=== PATIENT | male | born 1960 | race Caucasian/White ===

== ENCOUNTER 2020-06-19 06:41 | Observation (INO) ==
--- NOTE | 2020-06-13 10:07 | Anesthesiology Consultation ---
Date of Service June 13, 2020 Assessment & Plan (1) Encounter for pre-operative examination: COVID Status: As of 06/13 assessment, patient denies travel to endemic area, known exposure/sick contacts, or symptoms of COVID19. Patient instructed that they and their household members must follow strict social distancing guidelines, wear a mask in public and avoid travel for 14 days prior to surgery. Preoperative COVID19 testing completed at [facility] 06/13 -- results NEGATIVE. Patient made aware to self-isolate as much as possible between COVID testing and surgery. PATIENT GOES BY '[facility]AU' Chart Review Chart Review: Acceptable Risk for Surgery and Patient seen in Pre Admission Testing Teaching & Discussion Instructed NPO after midnight before surgery, except medications with 15 cc of water. Medication instructions provided according to the [facility] guidelines. History Surgery Operation Date: 06/19/20 08:15 Proposed Procedures p Right Robotic Partial Nephrectomy - Christiano Pagan, DO Height/Weight Height: 6 ft 1.5 in Weight: 183.4 kg Allergies Allergy/AdvReac Type Severity Reaction Status Date / Time No Known Allergies Allergy Verified 06/10/20 10:11 Medications Home Medications Medication Instructions Recorded Confirmed Last Taken No Known Home Medications 06/10/20 06/10/20 Unknown Past Medical History Medical History Basal cell carcinoma face Hypertension no current problems and no meds Morbid obesity Renal mass Suspicious for malignancy per imaging Sleep apnea cpap. Pt reports 100% compliance. Exercise / Class Metabolic Activity II 4-5 Yardwork/Stairs/Walk up hill ([place], goes up and down stairs, denies CP or SOB with 1 FOS) Past Family History Family History Sister Lymphoma Mother Breast cancer Daughter Nephrolithiasis Past Surgical History Surgical History Hx of colonoscopy Hx of laparoscopic gastric banding about 13 years ago, Hx of tonsillectomy Past Anesthesia History No Hx of Anesthesia Complications and No Family Hx of Anesthesia Complications History of PONV No Hx of PONV and Hx of Motion Sickness Social History Smoking Status: Never smoker Do You Dip or Chew Tobacco: No Hx Alcohol Use: Yes Alcohol type: hard liquor alcohol intake frequency: a few times a month Hx Substance Use: No Review of Systems Pt denies any recent chest pain, shortness of breath, palpitations, cough, fever, URI, or uncontrolled acid reflux. +sinus drainage with reflexive cough Physical Exam Vital Signs BP: 160/94 (pt reports anxiety, states this is high for him and has been OK at other visits) P: 79bpm SPO2: 97% RA T: 98.0 F R: 16 ENMT Mouth: + dental restorations (bonding/filling in one lower L molar) and + macroglossia; no chipped teeth and no loose teeth Thyromental Distance: > or= 3.5 Finger Breadths Mallampati Class: II Neck + thick neck (very) and + facial hair (short valiente); neck extension not limited Respiratory normal respiratory effort, lungs clear to auscultation Cardiovascular RRR, no murmur, no edema Vessels: no carotid bruit Skin Venous stasis dermatitis B/L shins Testing Laboratory Results 06/13/20 10:14 06/13/20 10:14 Urine Color Yellow 06/13/20 10:14 Urine Appearance Clear (Clear) 06/13/20 10:14 Urine pH 5.0 (4.5-7.5) 06/13/20 10:14 Ur Specific [place] 1.016 (1.000-1.030) 06/13/20 10:14 Urine Protein Negative (Negative) 06/13/20 10:14 Urine Glucose (UA) Negative (Negative) 06/13/20 10:14 Urine Ketones Negative (Negative) 06/13/20 10:14 Urine Nitrite Negative (Negative) 06/13/20 10:14 Ur Leukocyte Esterase Negative (Negative) 06/13/20 10:14 Blood Type B Positive 06/13/20 10:14 Antibody Screen NEGATIVE 06/13/20 10:14 06/13/20 10:14 Urine Culture - Final Urine,Clean Catch No growth - less than 1,000 colonies/mL. Electrocardiogram Date: 06/13/20 Findings: + NSR @ (76bpm) iRBBB. Chest X-Ray Date: 05/09/20 Findings: + NAD
[2020-06-13 10:31] LABS: Basophils # (auto) 0.03 K/uL (0-0.2); Basophils % (auto) 0.3 %; Eosinophils % (auto) 2.3 %; Hematocrit (blood only) 44.3 % (42-52); Hemoglobin 14.4 g/dL (14.0-18.0); Immature Granulocytes # (auto) 0.04 K/uL (0.00-0.02); Immature Granulocytes % (auto) 0.5 %; Lymphocytes # (auto) 2.87 K/uL (1.2-3.4); Mean Corpuscular Hemoglobin 28.1 pg (25-34); Mean Corpuscular Hgb Conc 32.5 g/dL (32-36); Mean Corpuscular Volume 86.5 fL (80-100); Mean Platelet Volume 11.1 fL (7.4-10.4); Monocytes # (auto) 0.59 K/uL (0.11-0.59); Monocytes % (auto) 6.8 %; Neutrophils # (auto) 4.97 K/uL (1.4-6.5); Neutrophils % (auto) 57.1 %; Platelet Count 207 K/uL (130-400); RDW Coefficient of Variation 13.7 % (11.5-14.5); RDW Standard Deviation 43.3 fL (36.4-46.3); Red Blood Count 5.12 M/uL (4.7-6.1)
[2020-06-13 10:56] LABS: Appearance Urine Clear (Clear); Bilirubin Urine Negative (Negative); Blood Urine Negative (Negative); Color Urine Yellow; Glucose Urine UA Negative (Negative); Ketones Urine Negative (Negative); Leukocyte Esterase Urine Negative (Negative); Nitrite Urine Negative (Negative); Protein Urine Negative (Negative); Specific Gravity Urine 1.016 (1.000-1.030); Urobilinogen Urine Negative (Negative)
[2020-06-13 13:21] LABS: BUN Creatinine Ratio 13.9 (10-20); Creatinine Clr Calc Pharmacy 125.2 ml/min; Est GFR (African American) 84.4; Est GFR (Non-African American) 72.8; Potassium 4.9 mmol/L (3.5-5.1)
--- NOTE | 2020-06-13 22:18 | Electrocardiogram Report ---
Test Reason : Blood Pressure : / mmHG Vent. Rate : 076 BPM Atrial Rate : 076 BPM P-R Int : 144 ms QRS Dur : 110 ms QT Int : 374 ms P-R-T Axes : 032 086 046 degrees QTc Int : 420 ms Normal sinus rhythm Incomplete right bundle branch block Borderline ECG No previous ECGs available Confirmed by Manish Horton ([id number]) on 06/13/2020 10:18:00 PM Referred By: Christiano Pagan Confirmed By:Manish Horton
[~2020-06-19 06:41] MED LIST: LACTATED RINGER'S 1,000 ML IV SCH
[2020-06-19] MEDS ORDERED: MANNITOL 25% 12.5 GM/50 ML VIAL IV ONE (07:42)
[2020-06-19] MEDS ORDERED: HYDROmorphone INJ 1 MG/ML SYRINGE IV PRN (07:45)
[2020-06-19] MEDS ORDERED: ATROPINE SULFATE 0.1 MG/ML 10ML SYR IV PRN (07:45)
[2020-06-19] MEDS ORDERED: ONDANSETRON INJ 2 MG/ML 2 ML VIAL IV PRN ×2 (07:45→16:08)
[2020-06-19] MEDS ORDERED: ePHEDrine sulfate 50 MG/ML AMP IV PRN (07:45)
[2020-06-19] MEDS ORDERED: MIDAZOLAM HCL 1 MG/ML 2ML VIAL ONE (08:02)
[2020-06-19] MEDS ORDERED: HYDROmorphone INJ 2 MG/ML SYR/VIAL ONE (08:02)
[2020-06-19] MEDS ORDERED: fentaNYL citrate 100 MCG/2 ML VIAL ONE ×5 (08:02→14:29)
[2020-06-19] MEDS ORDERED: BUPIVACAINE 0.5 % 5 MG/1 ML MPF 30ML VIAL ONE (08:08)
--- NOTE | 2020-06-19 08:14 | History & Physical Bridge Note ---
Date of Service June 19, 2020 History & Physical Bridge Note I have examined the patient, reviewed the History & Physical and in the interval since the performance of the History & Physical I have noted the following changes of clinical significance: no changes noted
[2020-06-19] MEDS ORDERED: ACETAMINOPHEN 1000 MG/100 ML IV IV ONE (08:20)
[2020-06-19] MEDS ORDERED: DEXAMETHASONE SOD INJ 4 MG/ML VIAL ONE (09:58)
[2020-06-19] MEDS ORDERED: GLYCOPYRROLATE 0.2 MG/ML VIAL ONE (09:58)
[2020-06-19] MEDS ORDERED: SUCCINYLCHOLINE CHLORIDE 20 MG/ML 10 ML VIAL IV ONE (09:58)
[2020-06-19] MEDS ORDERED: LARYING-O-JET KIT (LTA) ONE (09:58)
[2020-06-19] MEDS ORDERED: ONDANSETRON INJ 2 MG/ML 2 ML VIAL ONE (09:58)
[2020-06-19] MEDS ORDERED: ROCURONIUM BROMIDE 10 MG/ML 5 ML VIAL IV ONE ×3 (09:58→11:45)
[2020-06-19] MEDS ORDERED: LIDOCAINE HCL 2% 2 ML VIAL/AMP(20MG/ML) INFIL ONE (09:58)
[2020-06-19] MEDS ORDERED: NEOSTIGMINE METHYLSULFATE 5 MG/5 ML SYR ONE (09:58)
[2020-06-19] MEDS ORDERED: PROPOFOL IV EMULSION 10 MG/ML 20 ML VIAL IV ONE ×2 (09:58→14:32)
[2020-06-19] MEDS ORDERED: TISSEEL FIBRIN SEALANT 10ML TOP ONE (11:02)
[2020-06-19] MEDS ORDERED: SURGICEL ABSORB HEMOSTAT 2IN X 14IN TOP ONE (11:02)
[2020-06-19] MEDS ORDERED: FLOSEAL HEMOSTATIC MATRIX 10ML TOP ONE (11:02)
[2020-06-19] MEDS ORDERED: LABETALOL HCL IV 5 MG/ML 20ML IV ONE (11:08)
[2020-06-19] MEDS ORDERED: ceFAZolin 1000MG 1,000 MG/7.5 ML SYR IV ONE (13:56)
--- NOTE | 2020-06-19 14:42 | Operative Report ---
PG Post Operative Report Pre & Post Diagnosis Operation Date: 06/19/20 08:15 Pre-Op Diagnosis: Right Renal Mass Post-Op Diagnosis: Right Renal Mass I identified the patient and participated in the time-out.: Yes Procedure Operation Date: 06/19/20 08:15 Actual Procedures p Right Robotic Assisted Laparoscopic Partial Nephrectomy(Right) - Christiano Pagan DO Surgeon Christiano Pagan, II, DO Hot Plate Press Operator Karly and Carmela Estimated Blood Loss 100 Findings Consistent with Post-Op Diagnosis Upper pole renal mass. Extensive adhesions of the right lateral wall Specimens Right renal mass Drains 10 Fr Flat drain 18 Fr Alvarenga Anesthesia Type General Complications none Disposition Disposition: Recovery Room Indications Patient with right renal mass suspicious for malignancy. Risks and benefits discussed at length. Description of Procedure The patient was brought to the operative suite and placed under general endotracheal intubation anesthesia in the supine position. The patient was transferred to lateral position with the right flank exposed. The patient was placed into a flex'ed position and then placed into mild reverse Trendelenberg. At this point, the patient prepped and draped in the usual sterile fashion and a timeout was completed. Preoperative weight based antibiotics had been given. ALCON's and SCD's were placed on the patient's lower extremities. A catheter was placed by nursing using sterile technique. With the time out completed the patient was flexed and the skin was marked. The lateral port site was anesthetized. A small incision was made into the skin and subcutaneous tissues. A Varess needle was selected and placed. The needle was easily moved and it was irrigated and aspirated without any issues or concerns for placement. Insufflation commenced. The 12 mm camera port was placed. The abdominal cavity was further insufflated. The laparoscopic camera was placed and the abdominal cavity inspected. No concerning features were noted. At this point, the skin was marked for port placement and 8mm working ports were placed. The skin was anesthetized down to fascia and an approx 1cm incision was made to place the 2 x 8mm ports. Two 12 mm assistant brand manager ports were also placed in similar fashion under direct visualization. The robot was positioned and docked. The camera was placed and all trocars were positioned under direct visualization. Halima Brandt was integral in port placement, camera utilization, and docking procedure. She also assisted during the extensive lysis of adhesions. She remained in sterile attire and then proceeded to assist the remainder of the case. The colon was mobilized medially to expose the retroperitoneum and the area assessed. Adhesions were freed to allow mobilization. A small amount of further adhesions were noted from the colon and were freed. These were dissected with blunt technique. Cautery was used to assist dissection and control bleeding. The retroperitoneal fat was assessed. Starting distally the retroperitoneum was dissected and care was taken to dissect down near the IVC. The gonadal vein and ureter were identified. This was then followed superiorly. Dissection stayed toward the midline along the IVC and the ureter and gonadal vein were followed up towards the renal hilum. The dissection was followed to the renal pelvis. The Renal Vein was identified and exposed. Dissection was taken further superior. The Renal Artery and Vein were then cleaned and exposed. Both the renal vein and artery had early branches and split. Clamp placement was assessed and good access was achieved. The perirenal fat anterior to the kidney was then dissected. The mass and surrounding tissues were exposed. The kidney was then further mobilized. The ultrasound probe was placed and the mass further examined. The edges were marked. A larger vessel was discovered in the posterior portion of the mass. This was clipped x 2 and ligated and cut. The Renal Vessels were assessed a final time. Dr. Casey assisted with this portion forward including mass removal, clamping of vessels, and closure of nephrotomy. A bulldog clamp was placed on the artery and then on the vein. The kidney appropriately blanched. The previously marked margins were used to start the incision into the kidney. The mass was completely excised without evidence of penetrating into the capsule of the mass. The mass was quite deep and dissection was taken down towards the collecting system. The base of resection bed was assessed and small vessels were cauterized. The collecting system did appear to be opened in a small area. A barbed suture was selected and the nephrotomy closed. Care was taken to close the collecting system opening. 3-0 Vicryl sutures were then used to close the edges of the elliptical opening. Three Vicryl sutures were used to close and bolster the edges. At this point, th e bulldog clamps were removed. Warm ischemia time, in total, was less than 20 minutes. The kidney was full assessed after removal of clamps. An area of bleeding was noted medially. Two additional 3-0 Vicryl sutures were used to further close the nephrotomy and control the bleeding. No bleeding or other major areas of concern. Weck and Hemolock clips were used to bolster and tightened to approximate the edges. Surgicel hemostatic agent sheets were placed over the vessels and on the incised edge. Hemostatic agents Tisseel and Floseal were also placed. Hemostatic agent was also placed on the vessels. No major bleeding or other issues. Gerota's tissues were replaced utilizing clips to cover the area. The excised mass was placed in an endocatch bag for removal. The entire dissection space was inspected one final time. No bleeding or injuries or areas of concern were noted. No tumor or other concerning features were noted. At this point, the robot was undocked and moved away from the patient. The port sites were all assessed laparoscopically. The endoscopic bag was moved to the lateral port. The superior and inferior 12mm port site were closed with the Gerry-Martins device and were closed with Vicryl suture. The other ports were assessed and no issues observed. The lateral port was opened further exposing fascia which was then opened in order to removed the mass within the bag. A Flat drain was placed through the skin and positioned utilizing the lateral incision. It was positioned in the gutter lateral to the liver and colon. This was secured with a silk 1-0 suture. A PDS suture was used to close fascia in multiple layers. The patient's fascia over the flack muscles was somewhat thin and with multiple layers a better closure was achieved. The subcutaneous fat tissues were closed with a running 3-0 vicryl. The skin at each site was closed with a running monocryl suture. The area was cleaned and bandages placed on each incision. The patient was cleaned and bandaged. The patient was moved back into the supine position The patient was cleaned, aroused from anesthesia, and transferred to the pacu in stable condition having tolerated the procedure well with no complications. I was present and participated in all aspects of the procedure. MILADYS Elaine was critical in the portions as mentioned above. I attest to the content of the Intraoperative Record and any orders documented therein. Any exceptions are noted below.
[2020-06-19] MEDS: fentaNYL citrate 100 MCG/2 ML VIAL IV PRN ×2 (15:17→15:22)
--- NOTE | 2020-06-19 15:25 | Anesthesiology Progress Note ---
Date of Service June 19, 2020 Anesthesia Post Procedure Vital Signs Vital Signs: Temp Pulse Pulse Resp BP Pulse Ox 06/19/20 15:20 87 18 141/76 H 94 06/19/20 15:10 86 14 150/88 H 96 06/19/20 15:00 84 14 130/83 96 06/19/20 14:50 91 H 17 136/74 96 06/19/20 14:42 98.4 F 92 H 18 104/90 99 06/19/20 07:05 98.8 F 80 18 169/78 H 97 Pain Intensity Abdomen: Pain Intensity: 5 Transfer of Care Handoff Completed per policy Notes Mental Status: alert / awake / arousable and participated in evaluation Patient Amnestic to Procedure: Yes Nausea / Vomiting: adequately controlled Pain: adequately controlled Airway Patency, RR, SpO2: stable & adequate BP & HR: stable & adequate Hydration State: stable & adequate Anesthetic Complications: no major complications apparent and Pt Satisfied with anesthetic care
[2020-06-19 15:54] LABS: Basophils # (auto) 0.03 K/uL (0-0.2); Basophils % (auto) 0.1 %; Eosinophils # (auto) 0.01 K/uL (0-0.5); Hematocrit (blood only) 43.6 % (42-52); Hemoglobin 14.3 g/dL (14.0-18.0); Immature Granulocytes # (auto) 0.11 K/uL (0.00-0.02); Immature Granulocytes % (auto) 0.5 %; Lymphocytes # (auto) 1.44 K/uL (1.2-3.4); Lymphocytes % (auto) 6.5 %; Mean Corpuscular Hemoglobin 28.3 pg (25-34); Mean Corpuscular Volume 86.2 fL (80-100); Mean Platelet Volume 11.4 fL (7.4-10.4); Monocytes # (auto) 0.66 K/uL (0.11-0.59); Neutrophils # (auto) 19.81 K/uL (1.4-6.5); Neutrophils % (auto) 89.9 %; Platelet Count 253 K/uL (130-400); RDW Coefficient of Variation 13.7 % (11.5-14.5); RDW Standard Deviation 42.9 fL (36.4-46.3); Red Blood Count 5.06 M/uL (4.7-6.1); White Blood Count 22.06 K/uL (4.8-10.8)
[2020-06-19 15:55] LABS: BUN Creatinine Ratio 14.8 (10-20); Calcium 8.3 mg/dl (8.5-10.1); Creatinine Clr Calc Pharmacy 89.4 ml/min; Est GFR (African American) 56.8; Potassium 5.1 mmol/L (3.5-5.1)
[2020-06-19] MEDS ORDERED: MoRPHine SULFATE 4 MG/ML 1 ML CARP\\VIAL IV PRN (16:08)
[2020-06-19] MEDS ORDERED: MoRPHine SULFATE 10 MG/ML CARP/VIAL IV PRN (16:08)
[2020-06-19] MEDS ORDERED: ACETAMINOPHEN 325 MG TAB PO PRN (16:08)
[2020-06-19] MEDS: oxyCODONE HCL IR 5 MG TAB (IMMEDIATE RELEASE) PO PRN ×2 (16:30→22:06)
[2020-06-19] MEDS: LACTATED RINGER'S 1,000 ML IV SCH ×2 (16:31→23:32)
[2020-06-19 17:34] LABS: Mean Corpuscular Hgb Conc 32.8 g/dL (32-36)
[2020-06-19] MEDS: ceFAZolin 2000MG 2,000 MG/15 ML SYR IV SCH (17:47)
[2020-06-20] MEDS: ceFAZolin 2000MG 2,000 MG/15 ML SYR IV SCH (01:00)
[2020-06-20] MEDS: oxyCODONE HCL IR 5 MG TAB (IMMEDIATE RELEASE) PO PRN ×5 (04:34→20:42)
[2020-06-20 05:44] LABS: Basophils # (auto) 0.02 K/uL (0-0.2); Basophils % (auto) 0.2 %; Eosinophils # (auto) 0.01 K/uL (0-0.5); Eosinophils % (auto) 0.1 %; Hemoglobin 12.9 g/dL (14.0-18.0); Immature Granulocytes # (auto) 0.04 K/uL (0.00-0.02); Immature Granulocytes % (auto) 0.3 %; Lymphocytes % (auto) 13.6 %; Mean Corpuscular Hemoglobin 27.9 pg (25-34); Mean Corpuscular Hgb Conc 32.3 g/dL (32-36); Mean Corpuscular Volume 86.6 fL (80-100); Mean Platelet Volume 10.8 fL (7.4-10.4); Monocytes # (auto) 1.44 K/uL (0.11-0.59); Monocytes % (auto) 11.5 %; Neutrophils # (auto) 9.31 K/uL (1.4-6.5); Neutrophils % (auto) 74.3 %; Platelet Count 207 K/uL (130-400); RDW Coefficient of Variation 13.9 % (11.5-14.5); RDW Standard Deviation 43.9 fL (36.4-46.3); Red Blood Count 4.62 M/uL (4.7-6.1); White Blood Count 12.52 K/uL (4.8-10.8)
[2020-06-20 06:13] LABS: BUN Creatinine Ratio 15.4 (10-20); Creatinine Clr Calc Pharmacy 86.6 ml/min; Est GFR (African American) 54.6; Est GFR (Non-African American) 47.2; Potassium 4.5 mmol/L (3.5-5.1)
--- NOTE | 2020-06-20 08:38 | Urology Progress Note ---
Date of Service June 20, 2020 Assessment & Plan (1) Renal mass: (2) Acute kidney injury: 60 year-old male patient POD #1 right robotic assisted laparoscopic partial nephrectomy secondary to right renal mass suspicious for malignancy. -Patient clinically progressing as expected. -Labs reviewed, slight increase in creatinine and white count. -Acute kidney injury likely secondary to surgical intervention on kidney and postoperative JENNY. -Patient hemodynamically stable, afebrile. -Encourage ambulation. -Will discontinue curiel catheter. Maintain FRANTZ at this time. -Advance diet as tolerated. -Continue with supportive care and pain control. -Plan for discharge today or tomorrow dependent on clinical progress. Admission and Anticipated Discharge Date Admission Date: June 19, 2020 Subjective POD #1 Right Robotic Assisted Laparoscopic Partial Nephrectomy. Patient examined this morning, feeling well postoperatively. Reports pain in both his right shoulder and right abdomen. Discomfort to shoulder is exacerbated by movement and touch. Pain is tolerable with PO and IV pain medications. Denies fevers or chills. Denies nausea or vomiting. Has not been out of bed since procedure. Tolerating curiel catheter. Per nursing, oxygen saturation decreased on room air, currently on 4L nasal cannula. No chest pain or shortness of breath. Chart review: Afebrile Wbc 12.52 Hgb 12.9 Creatinine 1.59 (preop 1.11) BP this morning 131/68 FRANTZ output 30 cc overnight (130 cc prior shift) Curiel catheter with adequate urine output. Denies additional urologic concerns today. Review of Systems Constitutional: as per Subjective / HPI; no fever and no chills Respiratory: no cough and no dyspnea Cardiovascular: no chest pain and no edema Gastrointestinal: as per Subjective / HPI; no nausea and no vomiting Genitourinary: + as per Subjective / HPI Musculoskeletal: as per Subjective / HPI Physical Exam Constitutional: well developed and well nourished; no acute distress and not ill appearing Respiratory: normal respiratory effort and able to speak in complete sentences; no respiratory distress and no audible wheezes Cardiovascular: Extremities: no edema Gastrointestinal (Abdomen): Inspection/Auscultation: abdomen normal to inspection; abdomen not distended Percussion/Palpation: + abdomen tender (Mild tenderness to palpation - RLQ) and abdomen soft; no guarding Skin: Surgical incisions appropriate, dressings intact. FRANTZ intact to right abdomen draining bloody drainage. Psychiatric: Orientation: alert, oriented x 3 and cooperative Affect: euthymic affect Genitourinary: no CVA tenderness Curiel catheter intact draining clear yellow drainage. Results & Data ([facility]) Vital Signs (Past 12 Hours) Vital Signs Temp Pulse Resp BP Pulse Ox 06/20/20 07:54 36.8 C 80 22 131/68 97 06/20/20 03:48 36.6 C 83 14 158/84 H 97 06/19/20 23:34 36.5 C 77 14 161/81 H 97 PG Care Time/CCT Total # of Minutes Spent Total Time Spent with Patient: Total time spent is greater than 50% in coordination of care (as documented) at patient's floor/unit and/or counseling patient: Coding Level of Care Code None Diagnoses Renal mass N28.89 Acute kidney injury N17.9
[2020-06-20] MEDS: HEPARIN SOD 5,000 UNIT/0.5 ML VIAL SQ SCH ×2 (10:03→21:04)
[2020-06-20] MEDS: LACTATED RINGER'S 1,000 ML IV SCH ×2 (10:07→20:36)
[2020-06-20] MEDS ORDERED: COUGH DROP (SUGAR FREE) LOZ 24 LOZ/1 BOX BUCCAL ONE (12:00)
--- NOTE | 2020-06-20 16:48 | Anesthesiology Progress Note ---
Date of Service June 20, 2020 late entry; pt seen this am at 0815; Anesthesia Post Procedure Vital Signs Vital Signs: Temp Pulse Resp BP Pulse Ox 06/20/20 15:11 36.9 C 88 16 157/84 H 95 06/20/20 07:54 36.8 C 80 22 131/68 97 06/20/20 03:48 36.6 C 83 14 158/84 H 97 06/19/20 23:34 36.5 C 77 14 161/81 H 97 06/19/20 17:02 36.8 C 83 17 144/87 H 94 Pain Intensity Abdomen: Pain Intensity: 6 Right Shoulder: Pain Intensity: 6 Notes Mental Status: alert / awake / arousable and participated in evaluation Nausea / Vomiting: adequately controlled Pain: adequately controlled Airway Patency, RR, SpO2: stable & adequate BP & HR: stable & adequate Hydration State: stable & adequate Anesthetic Complications: no major complications apparent and Pt Satisfied with anesthetic care
[2020-06-21 06:14] LABS: Basophils # (auto) 0.02 K/uL (0-0.2); Basophils % (auto) 0.2 %; Eosinophils # (auto) 0.01 K/uL (0-0.5); Eosinophils % (auto) 0.1 %; Hematocrit (blood only) 38.6 % (42-52); Hemoglobin 12.6 g/dL (14.0-18.0); Immature Granulocytes # (auto) 0.04 K/uL (0.00-0.02); Immature Granulocytes % (auto) 0.3 %; Lymphocytes # (auto) 1.27 K/uL (1.2-3.4); Lymphocytes % (auto) 10.1 %; Mean Corpuscular Hemoglobin 28.7 pg (25-34); Mean Corpuscular Hgb Conc 32.6 g/dL (32-36); Mean Corpuscular Volume 87.9 fL (80-100); Mean Platelet Volume 11.5 fL (7.4-10.4); Monocytes # (auto) 1.18 K/uL (0.11-0.59); Monocytes % (auto) 9.4 %; Neutrophils # (auto) 10.01 K/uL (1.4-6.5); Neutrophils % (auto) 79.9 %; Platelet Count 194 K/uL (130-400); RDW Coefficient of Variation 13.8 % (11.5-14.5); RDW Standard Deviation 44.8 fL (36.4-46.3); Red Blood Count 4.39 M/uL (4.7-6.1); White Blood Count 12.53 K/uL (4.8-10.8)
[2020-06-21 06:38] LABS: BUN Creatinine Ratio 14.1 (10-20); Calcium 8.5 mg/dl (8.5-10.1); Creatinine Clr Calc Pharmacy 99.8 ml/min; Est GFR (African American) 64.9; Potassium 4.3 mmol/L (3.5-5.1)
[2020-06-21] MEDS: oxyCODONE HCL IR 5 MG TAB (IMMEDIATE RELEASE) PO PRN (09:53)
[2020-06-21] MEDS: HEPARIN SOD 5,000 UNIT/0.5 ML VIAL SQ SCH (09:53)
--- NOTE | 2020-06-21 11:22 | Urology Progress Note ---
Date of Service June 21, 2020 Assessment & Plan (1) Renal mass: 60 year-old male patient POD #2 Right Robotic Assisted Laparoscopic Partial Nephrectomy secondary to renal mass suspicious for malignancy. Doing well. Ambulate. Ween O2. Plan to remove FRANTZ this afternoon if output still low. Continue bowel reg. Increase diet as tolerated. If doing well and able to ween O2 will plan home today. (2) Acute kidney injury: Likely multifactorial and resolving with hydration and IVF. Monitor. Admission and Anticipated Discharge Date Admission Date: June 19, 2020 Subjective POD #2 Right Robotic Assisted Laparoscopic Partial Nephrectomy. Patient having some fatigue. Has noticed pain medication can cause significant s leepiness. Pain improved. Minor discomfort on right shoulder and right abdomen. Pain is tolerable with PO and IV pain medications. Denies fevers or chills. Denies nausea or vomiting. OOB to chair and ambulating to bathroom. Alvarenga removed. On O2. Had some desat with ambulation. No chest pain or shortness of breath. No flatus or Bm. Tolerating diet. Review of Systems Review of Systems: All systems reviewed & are unremarkable except as noted in HPI & below Physical Exam Physical Exam: General: Alert in no acute distress. HEENT: Normocephalic Atraumatic. Inspection normal. Cranial Nerves 2-12 Grossly intact. Normal inspection of face. Normal inspection of neck. Psychologic: Normal affect. Respiratory: Nonlabored. No use of accessory muscles. No tachypnea or dyspnea. Cardiovascular: No tachycardia Skin: [place] and Dry. No rashes or visible lesions. Extremities/Lymphatics: No edema Abdomen: Obese. Appropriately tender. Mild distended. No rebound or guarding. Wound: Clean, dry, covered. Results & Data ([facility]) Vital Signs (Past 12 Hours) Vital Signs Temp Pulse Resp BP Pulse Ox 06/21/20 07:38 37.1 C 83 18 135/81 95 06/20/20 23:24 38.0 C H 103 H 20 151/91 H 94 PG Care Time/CCT Total # of Minutes Spent Total Time Spent with Patient: Total time spent is greater than 50% in coordination of care (as documented) at patient's floor/unit and/or counseling patient: Coding Level of Care Code 21822 Subseq Hosp Care Lvl 3 Diagnoses Renal mass N28.89 Acute kidney injury N17.9
--- NOTE | 2020-06-22 09:47 | Discharge Summary ---
Date of Service June 22, 2020 Admission HPI Per Admitting Provider See H&P Admission Exam Per Admitting Provider See H&P Principal Diagnosis Renal Mass suspicious for malignancy JENNY likely multifactorial Chronic respiratory issues. Discharge Exam General: Alert in no acute distress. HEENT: Normocephalic Atraumatic. Inspection normal. Psychologic: Normal affect. Skin: [place] and Dry. No rashes or visible lesions. Abdomen: Soft Non-distended. No rebound or guarding. Discharge Data Allergies Allergy/AdvReac Type Severity Reaction Status Date / Time No Known Allergies Allergy Verified 06/19/20 07:04 Procedures Performed Operation Date: 06/19/20 08:15 Actual Procedures p Right Robotic Assisted Laparoscopic Partial Nephrectomy(Right) - Christiano Pagan, Hospital Course (1) Renal mass: 60 year-old male patient POD #2 Right Robotic Assisted Laparoscopic Partial Nephrectomy secondary to renal mass suspicious for malignancy. Doing well. Ambulate. Ween O2. Plan to remove FRANTZ this afternoon if output still low. Continue bowel reg. Increase diet as tolerated. If doing well and able to ween O2 will plan home today. (2) Acute kidney injury: Likely multifactorial and resolving with hydration and IVF. Monitor. Total Time Total Time Spent Total Time Spent (In Minutes): 10 minutes Total Time Includes: Examination of the Patient, Discharge Planning, Medication Reconciliation and Communication With Other Providers Discharge Plan Discharge Items Patient Disposition: Home - Self-Care Reason For Visit: Renal Mass Discharge Diagnosis: Renal mass Activity: Per Instructions section Lifting: No more than 10 pounds Bathing Comment: No tub baths, okay to shower tonight. Sexual Activity: Wait until after follow-up appointment Exercise/Sports: Wait until after follow-up appointment Driving/Machine Use: Do not drive while on narcotic pain medication Non-emergency contact: Surgeon and Urologist Call non-emergency contact if: your pain is not controlled, your temperature is above 101, your wound has increased redness, your wound has increased drainage and your wound pain has increased Follow-up/Referrals: Tonja Fernández PA-C [Primary Care Provider] - Diet: Regular Addtl Attending Provider Instructions: Please take all medications as prescribed and keep all follow-ups as scheduled. Please call our office at [phone] with any questions, concerns or need to reschedule appointments for any reason. We are happy to assist you. Recovering at home: We recommend having someone with you for the first few days after surgery to help care for you. It is okay to shower tomorrow. Please avoid swimming, bathing or using hot tub until incisions are well healed. Avoid driving until you are not requiring pain medication any further. Walk at least a few times a day. Increase your distance, as you feel able. Stairs in your home are okay. Please avoid strenuous or sexual activity until your follow-up. We recommend using stool softener (i.e. Colace) to prevent constipation and straining, especially the first two weeks post operatively. Call [facility] at [phone] if you experience: Chest pain or trouble breathing (call [phone] or go to the hospital). Fever of 101F or higher Symptoms of infection at incision site, including redness or swelling, warmth, or bad-smelling drainage If you have catheter, and you notice: o Bloody urine or drainage that is dark red or has large clots (Please remember a small amount of blood is normal) o No drainage from the catheter for more than 6 hours o The catheter comes out of your bladder Pain that is not controlled with medicines Pending Studies at Discharge: Yes Studies:: Pathology Stand-Alone Forms: My [facility], Opioid Pain Management, Smoking Cessation Medications and DC Order Prescriptions: New oxycodone-acetaminophen [Percocet] 5-325 mg tablet 1 tab PO Q8H PRN (Reason: pain) Qty: 14 RF: 0 docusate sodium [Colace] 100 mg capsule 100 mg PO BID Qty: 60 RF: 0 No Action No Known Home Medications RF: 0 Discharge Orders: Discharge Order (Routine); Ordered 06/21/20 Ordered By: Christiano Pagan Admission Data Admit Date/Time: 06/19/20 14:39 Attending Provider: Christiano Pagan Admit Provider: Christiano Pagan Primary Care Provider: Tonja Fernández Other Interventions: Discharge Summary Assessment (RN) Last Done: 06/21/20 15:38 Coding Level of Care Code D/C Day Management <30 mins Diagnoses Renal mass N28.89 Acute kidney injury N17.9
== END 2020-06-21 16:06 | disposition home or self-care (01) ==
LOC: ASU 06:41 → 3N 14:39 → INTOOBSV 14:39